=== PATIENT | male | born 1995 | race Caucasian/White ===

== ENCOUNTER 2025-05-12 17:32 | Emergency (ER) | payer OTHER, SELFPAY ==
[2025-05-12 17:37] VITALS: BP 158/93; PULSE 72; RESP 18; TEMP 36.8; O2SAT 100; BMI 26.2
--- OUTSIDE RECORDS SUMMARY | 2025-05-12 17:52 | XMS_ITS | Referral Summary ---
Author Organization [employer] ([place], [place], [place], [place]) Address [address] [place] [address] Care Team Providers Care Neurology Technician Name Role Phone Unavailable Primary Care Provider Unavailabl e Social History Tobacco Use Types Packs/Day Years Used Date Smoking Tobacco: Never Assessed Sex and Gender Information Value Date Recorded Sex Assigned at Not on file Legal Sex Male 10:53 AM CDT Gender Identity Not on file Sexual Orientation Not on file Plan of Treatment Upcoming Encounters Date Type Department Care Team (Late st Contact Info) Description 05/16/2025 10:00 AM EDT Office Visit [facility] [address] [place] [address] Humberto Allen III, MD [address] [place] [address]
--- OUTSIDE RECORDS SUMMARY | 2025-05-12 17:52 | XMS_ITS | Clinical Summary ---
Author Organization [employer] ([place], [place], [place], [place]) Address [address] [place] [address] Care Team Providers Care Private Investigator Surveillance Name Role Phone Unavailable Primary Care Provider [...] Description 05/16/2025 10:00 AM EDT Office Visit [facility] [address] [place] [id number] Humberto Allen III, MD [address] [place] [address] Health Maintenance Due Date Last Done Comments Depression Screening (12+) 2006 Tobacco Cessation Counseling and Screening (12+) 2006 HIV Screening 2009 Hepatitis C Screening 2012 DTAP/TDAP/TD VACCINES (4 - T d or Tdap) 12/01/2015 11/30/2005, 06/21/1998, 09/02/1995 COVID-19 VACCINE (2023-2 5 season) 2025 Influenza Vaccine (#1) 2025 Pneumococcal Vaccine: 0-49 Years Aged Out No longer eligible b ased on patient's age to complete this topic
--- NOTE | 2025-05-12 18:21 | ED_ITS ---
Discharge Plan Disposition Patient Disposition: Home, Self-Care Condition: Good Prescriptions Prescriptions: New sulfamethoxazole-trimethoprim 800-160 mg tablet 1 tab PO BID 7 Days Qty: 14 0RF Referrals Follow up/Referrals: Provider,Referral, [Primary Care Provider, Medical] - See instructions Activity Restrictions/Add. Instructions Additional Instructions/Restrictions: Please take Bactrim for the next 7 days, twice daily. This lesion should continue to drain for another couple of days. If you develop reaccumulation of abscess, streaking redness, fevers, or any other new or concerning symptoms please return to the ER for further evaluation. Clinical Impressions Clinical Impression: Abscess, Cyst Instructions Patient Instructions: DI for Skin Abscess Print Language Print Language: Japanese Discharge ED Provider: Flaco Tejada Adult HPI General Chief complaint: Wound/Laceration Stated complaint: spot on his forehead Time Seen by Provider: 05/12/25 17:45 Mode of Arrival: Ambulatory Source of Information: Patient and Spouse Description of Symptoms (Recalled from ER Triage Doc. by RN): patient presents for a cyst on the forehead that the patient stated he has had for 10 years now. just in the last few days, equpiment he has to wear for work has irritated it, causing drainage as well. he works at [employer] and has for 5 years. History of Present Illness HPI narrative: Is a 29-year-old male patient, with no significant past medical history other medications, who is presenting to the emergency department today for evaluation of what he believes to be an abscess on his forehead. Patient states that he has had a cyst on his forehead in the midline for years. He states that in the last couple of days it has become erythematous and has formed a head. Last night he was in the shower and it began leaking some fluid. He has not had any fevers or headaches. No vision changes. Related Data Previous Rx's ?Medication ?Instructions ?Recorded sulfamethoxazole 800 1 tab PO BID 7 days #14 tabs 05/12/25 mg-trimethoprim 160 mg tablet Allergies Allergy/AdvReac Type Severity Reaction Status Date / Time No Known Allergies Allergy Verified 05/12/25 17:55 [facility] Disclaimer: The information contained in this section may have been updated after the patient was seen, as this information can be updated by other users. Social History Smoking Status: Never smoker alcohol intake: former current occupational status: employed Travel in the last 8 weeks?: None ROS Obtained: Yes Systems reviewed as appropriate & no additional complaints except as documented Physical Exam General General appearance: other (See MDM) Respiratory Respiratory exam: Present other (See MDM) Cardiovascular Cardiovascular exam: Present other (See MDM) Neurological Exam Neurological exam: Present other (See MDM) Medical Decision Making Medical Records Medical records reviewed: Yes I reviewed the patient's medical records. Screening: Per USPSTF and CDC recommendations, given the prevalence of disease in our region, it is our hospital?s policy to screen for HIV and viral Hepatitis for all patients aged 18 and over and those with ongoing risk factors. Diego Inquiry Pt receiving controlled substance: No Diego was queried for this patient: No Vital Signs: 05/12/25 17:37 05/12/25 19:15 Temperature 98.2 F 98.2 F Temperature Source Temporal Artery Scan Oral Pulse Rate 67 Pulse Rate [Right Radial] 72 Respiratory Rate 18 18 Blood Pressure 141/95 H Blood Pressure [Right Arm] 158/93 H Blood Pressure Mean [Right Arm] 114 Blood Pressure Source Automatic Cuff Blood Pressure Source [Right Arm] Automatic Cuff Blood Pressure Position Sitting Blood Pressure Position [Right Arm] Sitting 02 Sat by Pulse Oximetry 100 Oxygen Delivery Method Room Air Room Air Orders (Tests/Meds): ED MEDICATIONS Discontinued Medications Generic Name Dose Route Start Last Admin Trade Name Birdie PRN Reason Stop Dose Admin Lidocaine HCl 10 ml 05/12/25 18:40 05/12/25 18:43 Lidocaine 1% 10ml Mdv SUBCUT 05/12/25 18:41 10 ml ONCE ONE Administration ORDERS Category Date Time Status POCUS Point of Care (ER Only) Stat Exams 05/12/25 18:09 Ordered Medical Decision Narrative: In summary, this is a 29-year-old male patient who is presenting to the emergency department today for evaluation of what he believes to be an abscess on the midline of the forehead. He states that he has had a chronic cystic lesion on the forehead that has been present for years but does not cause any trouble. Over the last couple of days it has become erythematous and formed a pustule. This patient has no comorbidities that would complicate their medical management or care. On initial evaluation of the patient they were resting comfortably in no acute distress and nontoxic in appearance. They are hemodynamically stable, saturating well room air, and are neurologically intact. On physical examination there is an erythematous cystic appearing lesion on the forehead with a central pustule present. I have tried to express fluid from this lesion and there is no fluid that has been expressed. Differential diagnosis includes abscess, cellulitis, sebaceous cyst, among others. We will work this patient up with a POCUS assessment to determine if there is fluid in this lesion that would necessitate drainage. I did perform bedside POCUS assessment which showed a 1.3 x 0.7 cm anechoic lesion in the subcutaneous tissues consistent with an abscess. There is mixed heterogenous components in the posterior aspect of this lesion that seem consistent with a cyst. My suspicion is that this is likely a sebaceous cyst chronically that is now formed to an abscess with a superficial pustule. I have had shared decision making with the patient about our options moving forward. We have discussed a stab incision with an 11 blade scalpel to express the contents of this lesion versus unroofing with a needle versus antibiotics to watch and wait. The patient would like for us to proceed with a stab incision. Therefore we used 1% lidocaine without epinephrine and performed a field block and proceeded to make a stab incision with an 11 blade. I expressed copious amounts of purulence from this lesion followed by expression of a copious amount of cystic components. The cystic component was collected in a specimen container and was sent to the lab for external pathology evaluation. We will place the patient on Bactrim given that this was a purulent lesion in addition likely indicative of staph infection. Patient understands that he should take this twice daily for the next 7 days. We did not pack the lesion. Instead we placed gauze over the lesion as well as a Band-Aid. I have informed the patient that this may drain for a couple of days. We have discussed he should return to the emergency department if he has any new or worsening symptoms including fevers, headaches, streaking erythema, or reaccumulation of abscess. At this time all questions have been answered and all parties are agreeable with the decision to discharge home Procedures Abscess I/D Site: face (Forehead; midline) Local Anesthetic: lidocaine 1% Amount of anesthesia used (mL): 4 Technique: incised with #11 blade Amount of fluid expressed (mL): 3 Packing used?: none Complications: other (None) Miscellaneous Procedure Procedure Performed: Limited soft tissue ultrasound Indication: Soft tissue erythema and pustule Identified structures: Subcutaneous tissue Location: Forehead Findings: Abscess measuring 0.7 cm x 1.3 cm, with cystic components in the posterior aspect of the lesion Impression: Mixed abscess and cystic lesion in the forehead measuring 0.7 x 1.3 cm Images were saved to permanent archive This study was technically adequate Soft tissue CPT codes Neck: 13601-72 Upper extremity: 75508?26 Axilla: 71115-78 Chest wall: 22608-92 Breast: 7664 1-2 6 (complete), 67871-41-[RT/LT] (Limited) Upper back: 06088-78 Abdominal wall: 70452-46 Pelvic wall: 87031-84 Lower extremity: 81663-20 Other soft tissue: 77214-21 This study was performed by me and I personally interpreted all images/videos. Based on my clinical judgment these images were adequate and did not necessitate further imaging. Critical Care Critical Care Time Critical Care Time: No
[2025-05-12] MEDS: LIDOCAINE 1% 10ML MDV 10 ML SUBCUT (18:43)
[2025-05-12 19:15] VITALS: BP 141/95; PULSE 67; RESP 18; TEMP 36.8; O2SAT 100
== END 2025-05-12 19:14 | disposition home or self-care (01) ==
PROVIDERS: Emergency Provider Student in an Organized Health Care Education/Training Program
DX: L02.01 Cutaneous abscess of face (principal)
CPT/HCPCS: 10060; 99283; J2003